=== PATIENT | female | born 1975 | race Caucasian/White ===

== ENCOUNTER 2016-09-02 16:40 | Emergency (ER) | payer OTHER ==
[2016-09-02] MEDS ORDERED: NAPROXEN 500 MG TABLET (FP) PO ONE (17:17)
[2016-09-02 17:20] VITALS: BP 118/75; PULSE 107; TEMP 98.7; BMI 36.6
[2016-09-02] MEDS ORDERED: NAPROXEN 500 MG TABLET (FP) ONE (17:23)
--- NOTE | 2016-09-02 17:25 | PDOC ---
History of Present Illness - General History Source: Patient Exam Limitations: No Limitations - History of Present Illness Initial Comments: 09/02/16 17:26 The patient is a 41 year old female, with a significant past medical history of left ankle fracture(August 2015), GERD, anemia, and obesity, who presents to the emergency department complaining of right hip pain for approximately 2 weeks. She initially noted pain when leaning on the hip or with right hip flexion.The patient reports the pain is localized to the right hip and radiates to her right lower back. She reports the pain is exacerbated when lying down or baring weight on her right leg, and alleviated when sitting down. She denies any recent trauma to the site of the pain or heavy lifting. Patient reports taking 600 mg motrin for the pain at night, with mild relief. Patient denies any fever , chills, cough, headache, or dizziness. She denies any abdominal pain, nausea, vomiting, diarrhea, or constipation. She denies any flank pain, dysuria, hematuria, frequency, or urgency. Patient traveled to [facility], [place] about 2 months ago, but has no recent sick contacts. Allergies: Surgical tape, codeine Past Surgical History: Left ankle fracture repair Social History: Social ETOH use. No smoking or recreational drug use. 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 PCP: Dr. Walker Orthopedist: Dr. Lockhart <Duane Nolasco - Last Filed: 09/02/16 17:26> - General History Source: Patient Exam Limitations: No Limitations <Kodak Majano - Last Filed: 09/02/16 18:39> - General Chief Complaint: Pain Stated Complaint: RLQ PAIN X 2 WEEKS Time Seen by Provider: 09/02/16 16:48 Past History <Duane Nolasco - Last Filed: 09/02/16 17:26> - Past Medical History Anemia: Yes Asthma: No Cancer: No Cardiac Disorders: No CVA: No COPD: No CHF: No Dementia: No Diabetes: No GI Disorders: Yes (OCCASIONAL ACID REFLUX) Disorders: No HTN: No Hypercholesterolemia: No Liver Disease: No Seizures: No Thyroid Disease: No - Surgical History Abdominal Surgery: Yes (TUMMY TUCK/LIPO 2010) Appendectomy: No Cardiac Surgery: No Cholecystectomy: No Lung Surgery: No Neurologic Surgery: No Orthopedic Surgery: No - Psycho/Social/Smoking Cessation Hx Anxiety: No Suicidal Ideation: No Smoking History: Never smoked Have you smoked in the past 12 months: No Hx Alcohol Use: No Drug/Substance Use Hx: No Substance Use Type: Alcohol Hx Substance Use Treatment: No <Kodak Majano - Last Filed: 09/02/16 18:39> - Past Medical History Allergies/Adverse Reactions: Allergies Allergy/AdvReac Type Severity Reaction Status Date / Time adhesive tape Allergy Intermediate BLISTERS Verified 09/04/15 10:58 codeine AdvReac Intermediate DIZZY/NAUSE Verified 09/04/15 10:58 OUS Home Medications: Ambulatory Orders Acetaminophen [Tylenol -] 1,000 mg PO Q4H PRN 09/04/15 Omeprazole [Prilosec] 20 mg PO DAILY PRN 09/04/15 Naproxen [Naprosyn -] 500 mg PO BID PRN #20 tablet 09/02/16 Review of Systems - Review of Systems Able to Perform ROS?: Yes Comments:: 09/02/16 17:26 GENERAL/CONSTITUTIONAL: No fever or chills. No weakness. HEAD, EYES, EARS, NOSE AND THROAT: No change in vision. No ear pain or discharge. No sore throat. CARDIOVASCULAR: No chest pain or shortness of breath. RESPIRATORY: No cough, wheezing, or hemoptysis. GASTROINTESTINAL: No nausea, vomiting, diarrhea or constipation. GENITOURINARY: No dysuria, frequency, or change in urination. MUSCULOSKELETAL: Yes: +right hip pain, +right lower back pain. No neck pain. SKIN: No rash NEUROLOGIC: No headache, vertigo, loss of consciousness, or change in strength/ sensation. ENDOCRINE: No increased thirst. No abnormal weight change. HEMATOLOGIC/LYMPHATIC: No anemia, easy bleeding, or history of blood clots. ALLERGIC/IMMUNOLOGIC: No hives or skin allergy. <Duane Nolasco - Last Filed: 09/02/16 17:26> *Physical Exam - Vital Signs Last Vital Signs Temp Pulse Resp BP Pulse Ox 98.7 F 107 H 15 118/75 98 09/02/16 16:42 09/02/16 16:42 09/02/16 16:42 09/02/16 16:42 09/02/16 16:42 - Physical Exam Comments: 09/02/16 17:27 GENERAL: Awake, alert, and fully oriented, in no acute distress HEAD: No signs of trauma EYES: PERRLA, EOMI, sclera anicteric, conjunctiva clear ENT: Auricles normal inspection, hearing grossly normal, nares patent, oropharynx clear without exudates. Moist mucosa NECK: Normal ROM, supple, no lymphadenopathy, JVD, or masses ABDOMEN: Soft, nontender, normoactive bowel sounds. No guarding, no rebound. No masses EXTREMITIES: Tenderness to the right hip, reproducible pain with right hip flexion. Normal range of motion, no edema. No clubbing or cyanosis. No cords, erythema, or tenderness NEUROLOGICAL: Cranial nerves II through XII grossly intact. Normal speech, normal gait SKIN: Warm, Dry, normal turgor, no rashes or lesions noted. <Duane Nolasco - Last Filed: 09/02/16 17:26> - Vital Signs Last Vital Signs Temp Pulse Resp BP Pulse Ox 98.7 F 107 H 15 118/75 98 09/02/16 16:42 09/02/16 16:42 09/02/16 16:42 09/02/16 16:42 09/02/16 16:42 <Kodak Majano - Last Filed: 09/02/16 18:39> ED Treatment Course - RADIOLOGY Radiology Studies Ordered: Category Date Time Status HIP & PELVIS-RIGHT [RAD] Stat Radiology 09/02/16 17:17 Ordered <Kodak Majano - Last Filed: 09/02/16 18:39> Medical Decision Making - Medical Decision Making 09/02/16 17:23 A portion of this note was documented by scribe services under my direction. I have reviewed the details of the note, within reason, and agree with the documentation with the following case summary and management plan written by me. Patient treated in the ED. Nursing notes are reviewed and incorporated into the medical decision-making. Vital signs reviewed. Vital Signs Temp Pulse Resp BP Pulse Ox 98.7 F 107 H 15 118/75 98 09/02/16 16:42 09/02/16 16:42 09/02/16 16:42 09/02/16 16:42 09/02/16 16:42 41-year-old female with past medical history of obesity presents with right hip pain. The patient reports 2 weeks ago that she started noticing pain when leaning on her right head and with right hip flexion. Denies any trauma or injury to the area. Patient has been taking ibuprofen intermittently with improvement in symptoms. Denies fevers or chills. I suspect the patient likely has tendinitis or muscle skeletal pain. We'll obtain a right hip x-ray to rule out bony pathology. NSAIDs. If workup is negative, patient would likely benefit from outpatient physical therapy and orthopedics follow-up. Patient is ambulatory without difficulty. 09/02/16 18:37 X-ray reviewed, pending official radiology read. No acute fractures or abnormalities at this time. At this time, we will give referral to orthopedics for further evaluation. I discussed the physical exam findings, ancillary test results and final diagnoses with the patient. I answered all of the patient's questions. The patient was satisfied with the care received and felt comfortable with the discharge plan and treatment plan. The patient will call their primary care physician within 24 hours to arrange follow-up and will return to the Emergency Department with any new, persistant or worsening symptoms. <Kodak Majano - Last Filed: 09/02/16 18:39> *DC/Admit/Observation/Transfer - Attestations Scribe Attestion: 09/02/16 17:27 Documentation prepared by Duane Nolasco, acting as director global medical affairs for Kodak Majano MD. <Duane Nolasco - Last Filed: 09/02/16 17:26> - Discharge Dispostion Admit: No <Kodak Majano - Last Filed: 09/02/16 18:39> Diagnosis at time of Disposition: Hip pain, right - Discharge Dispostion Disposition: HOME Condition at time of disposition: Good - Prescriptions Prescriptions: Naproxen [Naprosyn -] 500 mg PO BID PRN #20 tablet PRN Reason: Pain - Referrals Referrals: Ally Walker MD [Primary Care Provider] - Garrett Lockhart MD [Staff Physician] - - Patient Instructions Printed Discharge Instructions: Help for Hip Pain Additional Instructions: Please take 500 mg of naproxen every 12 hours as needed for pain. Please make an appointment with an orthopedist and schedule appointment.
== END 2016-09-02 18:59 | disposition home or self-care (01) ==
LOC: FER 16:40
DX: M25.551 Pain in right hip (principal); K21.9 Gastro-esophageal reflux disease without esophagitis; D64.9 Anemia, unspecified; E66.9 Obesity, unspecified; Z68.36 Body mass index [BMI] 36.0-36.9, adult; Z88.5 Allergy status to narcotic agent
CPT/HCPCS: 73523-TC; 84703; 99283-25